=== PATIENT | female | born 1990 | race Caucasian/White ===

== ENCOUNTER 2022-03-12 06:00 | Inpatient (IN) | payer OTHER ==
[2022-03-12] MEDS ORDERED: PROMETHAZINE HCL 25 MG/1 ML VIAL IVPUSH PRN (06:10)
[2022-03-12] MEDS ORDERED: BUTORPHANOL TARTRATE 1 MG/ML VIAL IVPB PRN (06:10)
[2022-03-12] MEDS ORDERED: ELECTROLYTE-148 SOLN 1,000 ML IV SCH (06:15)
[2022-03-12 06:45] LABS: BASO % 0.5 % (0-2.0); EOS % 0.5 % (0-4.5); HEMOGLOBIN 11.3 GM/dL (10.7-15.3); LYMPH % 24.4 % (8-40); MCH 25.6 pg (25.7-33.7); MCHC 32.3 g/dl (32.0-36.0); MEAN CELL VOLUME 79.3 fl (80-96); MEAN PLT VOLUME 9.2 fl (7.5-11.1); MONO % 5.1 % (3.8-10.2); NEUT % 69.5 % (42.8-82.8); PLATELET COUNT 256 10^3/uL (134-434); RBC 4.41 M/mm3 (3.60-5.2); RDW 14.1 % (11.6-15.6); WHITE BLOOD COUNT 7.8 K/mm3 (4.0-10.0)
[2022-03-12 06:53] LABS: INR 0.99 (0.83-1.09); PROTHROMBIN TIME (PATIENT) 11.4 SEC (9.7-13.0)
[2022-03-12 06:56] LABS: ACTIVATED PTT 24.1 SECONDS (25.2-36.5)
[2022-03-12 07:02] LABS: CALCIUM 8.4 mg/dL (8.5-10.1)
[2022-03-12 07:03] LABS: BLOOD UREA NITROGEN 5.6 mg/dL (7-18)
[2022-03-12 07:05] VITALS: BMI 23.9
[2022-03-12 07:05] LABS: CREATININE 0.5 mg/dL (0.55-1.3)
[2022-03-12 08:00] LABS: HIV INTERPRETATION NEGATIVE (NEGATIVE)
[2022-03-12] MEDS ORDERED: OXYTOCIN 30 UNITS in 0.9% NS 30 UNIT/500 ML INFUS.BAG IVPB SCH (10:15)
[2022-03-12] MEDS ORDERED: OXYTOCIN 30 UNITS in 0.9% NS 30 UNIT/500 ML INFUS.BAG IVPB ONE (10:34)
[2022-03-12] MEDS ORDERED: LIDOCAINE HCL 1% PRESERVATIVE FREE - 30ML VIAL ONE (12:30)
[2022-03-12] MEDS ORDERED: OXYTOCIN 20 UNITS in 0.9% NS 20 UNIT/1,000 ML INFUS.BAG IV ONE ×2 (12:30→14:40)
[2022-03-12] MEDS ORDERED: WITCH HAZEL 50% (TUCKS) 40 PAD/JAR PAD TP PRN (12:58)
[2022-03-12] MEDS ORDERED: ACETAMINOPHEN 325 MG TABLET (FP) PO PRN (12:58)
[2022-03-12] MEDS ORDERED: BENZOCAINE 20% 57 GM BOTTLE TP PRN (12:58)
[2022-03-12] MEDS ORDERED: BISACODYL 10 MG SUPP.RECT RC PRN (12:58)
[2022-03-12] MEDS ORDERED: BENZOCAINE 28 GM HEMORRHOIDAL OINTMENT TP PRN (12:58)
[2022-03-12] MEDS ORDERED: IBUPROFEN 600 MG TABLET (FP) PO PRN (12:58)
[2022-03-12] MEDS ORDERED: OXYTOCIN 20 UNITS in 0.9% NS 20 UNIT/1,000 ML INFUS.BAG IV SCH (13:00)
[2022-03-13 03:06] LABS: BENZODIAZEPINES, UR Negative ng/mL (Cutoff=200); CANNABINOIDS, URINE Negative ng/mL (Cutoff=20); METHADONE, URINE Negative ng/mL (Cutoff=300); OPIATES, UR Negative ng/mL (Cutoff=300); PHENCYCLIDINE, URINE Negative ng/mL (Cutoff=25)
[2022-03-13 08:17] LABS: BASO % 0.6 % (0-2.0); EOS % 0.1 % (0-4.5); HEMATOCRIT 34.7 % (32.4-45.2); HEMOGLOBIN 11.2 GM/dL (10.7-15.3); LYMPH % 14.9 % (8-40); MCH 25.8 pg (25.7-33.7); MCHC 32.3 g/dl (32.0-36.0); MEAN CELL VOLUME 79.9 fl (80-96); MEAN PLT VOLUME 9.2 fl (7.5-11.1); MONO % 3.4 % (3.8-10.2); PLATELET COUNT 251 10^3/uL (134-434); RBC 4.34 M/mm3 (3.60-5.2); RDW 14.6 % (11.6-15.6); WHITE BLOOD COUNT 12.5 K/mm3 (4.0-10.0)
[2022-03-13 13:42] VITALS: BP 119/79; PULSE 83; RESP 17; TEMP 97.9
[2022-03-13] MEDS ORDERED: SENNOSIDES/DOCUSATE COMBO (SENNA PLUS) TABLET (UD) PO PRN (22:00)
== END 2022-03-13 18:10 | disposition home or self-care (01) | DRG 560 ==
LOC: JLDR 06:00 → J3W 14:40
PROVIDERS: ADMIT Obstetrics & Gynecology; ATTEND Obstetrics & Gynecology
PROC: 10E0XZZ Delivery of Products of Conception, External Approach (ICD-10-PCS; principal; 2022-03-12)
PROC: 0HQ9XZZ Repair Perineum Skin, External Approach (ICD-10-PCS; 2022-03-12)
DX: O70.0 First degree perineal laceration during delivery (principal); Z3A.39 39 weeks gestation of pregnancy; Z37.0 Single live birth
CPT/HCPCS: 36415; 59409; 80048; 80307; 85025; 85610; 85730; 86780; 86850; 86900; 86901; 87389; C9803-CS; U0003; U0005